=== PATIENT | female | born 2000 | race Caucasian/White ===

== ENCOUNTER 2019-03-05 17:34 | Emergency (ER) | payer BC ==
[~2019-03-05] VITALS: Ht 172.7 cm; Wt 76.2 kg
[2019-03-05 17:54] LABS: URINE BILIRUBIN NEGATIVE (Negative); URINE BLOOD NEGATIVE (Negative); URINE CLARITY CLEAR; URINE COLOR YELLOW; URINE GLUCOSE-RANDOM* NEGATIVE (Negative); URINE KETONES NEGATIVE (Negative); URINE NITRITE-REFLEX NEGATIVE (Negative); URINE PROTEIN (DIPSTICK) NEGATIVE (Negative); URINE SPECIFIC GRAVITY <= 1.005 (1.005-1.035); URINE UROBILINOGEN 0.2 E.U./dl (0.2-1.0)
[2019-03-05 17:56] LABS: URINE LEUKOCYTES-REFLEX 1+ (Negative)
[2019-03-05 18:10] LABS: BACTERIA-REFLEX 1-9 Few /HPF (None Seen); CASTS None Seen /LPF (None Seen); CRYSTALS None Seen /LPF (None Seen); SQUAMOUS 0-3 Few /LPF (0-3); URINE RBC None Seen /HPF (0-2); URINE WBC-REFLEX 0-5 Rare /HPF (0-5)
[2019-03-05 19:52] LABS: ABSOLUTE NEUTROPHILS 4.1 thou/uL (1.4-8.2); EOSINOPHILS 2.1 % (0.0-3.0); HEMATOCRIT 42.6 % (37.0-47.0); LYMPHOCYTES 28.7 % (24.0-44.0); MCH 27.7 pg (26.0-34.0); MCHC 32.8 g/dL (28.0-37.0); MCV 84.3 fL (80.0-100.0); MONOCYTES 10.3 % (1.0-8.0); PLATELET COUNT 290 thou/uL (150-400); POLYS 57.9 % (36.0-66.0); RBC 5.05 mil/uL (4.20-5.00); RDW 13.3 % (10.5-14.5); WBC 7.1 thou/uL (4.0-11.0)
[2019-03-05 19:58] LABS: CALCIUM 9.7 mg/dL (8.5-10.1); CREATININE 0.8 mg/dL (0.6-1.0)
[2019-03-05 20:05] LABS: ALBUMIN 3.5 g/dL (3.4-5.0); TOTAL BILIRUBIN 0.3 mg/dL (<0.1-1.0); TOTAL PROTEIN 7.4 g/dL (6.4-8.2)
[2019-03-05] MEDS ORDERED: KEFLEX500 M1 PO (20:16)
[2019-03-05] MEDS ORDERED: LEVSIN0.125 MG PO (20:17)
[2019-03-05] MEDS ORDERED: DIFLUCAN150 MG PO (20:24)
[2019-03-05 21:14] VITALS: BP 118/50
== END 2019-03-05 21:15 | disposition home or self-care (01) ==
LOC: ER 17:34
PROVIDERS: Emergency Medicine; Physician Assistant
DX: N39.0 Urinary tract infection, site not specified (principal)